=== PATIENT | male | born 1995 | race African-American/Black ===

== ENCOUNTER 2016-10-07 08:17 | Emergency (ER) | payer OTHER ==
[~2016-10-07] VITALS: Ht 182.8 cm; Wt 70.3 kg
[2016-10-07] MEDS ORDERED: BLEPH-10 15 ML15 ML OPH (09:01)
[2016-10-07] MEDS ORDERED: CLINDAMYCIN HC300 MG PO (09:01)
== END 2016-10-07 09:13 | disposition home or self-care (01) ==
LOC: ED 08:17
DX: L03.213 Periorbital cellulitis (principal); H10.32 Unspecified acute conjunctivitis, left eye; F17.200 Nicotine dependence, unspecified, uncomplicated; Z88.0 Allergy status to penicillin